=== PATIENT | female | born 1975 | race Caucasian/White ===

== ENCOUNTER → 2017-04-07 | Outpatient (CLI) | payer OTHER ==
[2017-04-07 07:11] LABS: HEMATOCRIT 40.9 % (34.6-47.8); HEMOGLOBIN 13.6 g/dL (11.7-16.4); WHITE BLOOD COUNT 7.6 x10^3/uL (3.4-10)
[2017-04-07 07:22] LABS: BLOOD UREA NITROGEN 10 mg/dL (7-18)
[2017-04-07 07:47] LABS: ASPARTATE AMINO TRANSFERASE 16 U/L (15-37)
== END | disposition home or self-care (01) ==
LOC: LAB 06:54
PROVIDERS: ATTEND Nurse Practitioner
DX: Z00.01 Encounter for general adult medical examination with abnormal findings (principal); I10 Essential (primary) hypertension
CPT/HCPCS: 36415; 80053; 80061; 82306; 82607; 82746; 84443; 85025

== ENCOUNTER → 2018-04-25 | Outpatient (CLI) | payer OTHER ==
[2018-04-25 07:34] LABS: BASOPHILS # (AUTO) 0.04 x10^3/uL (0-0.1); BASOPHILS % (AUTO) 1 % (0-1); EOSINOPHILS # (AUTO) 0.09 x10^3/uL (0-0.4); EOSINOPHILS % (AUTO) 1 % (1-7); LYMPHOCYTES # (AUTO) 2.12 x10^3/uL (1-3.4); LYMPHOCYTES % (AUTO) 26 % (22-44); MD NO; MEAN CORPUSCULAR HEMOGLOBIN 26.9 pg (27.0-34.8); MEAN CORPUSCULAR HGB CONC 32.3 g/dL (32.4-35.8); MEAN CORPUSCULAR VOLUME 83.3 fL (80-100); MEAN PLATELET VOLUME 8.8 fL (7.4-10.4); MONOCYTES # (AUTO) 0.45 x10^3/uL (0.2-0.8); MONOCYTES % (AUTO) 6 % (2-9); NEUTROPHILS # (AUTO) 5.48 x10^3/uL (1.8-6.8); NEUTROPHILS % (AUTO) 67 % (42-75); PLATELET COUNT 254 x10^3/uL (130-400); RED BLOOD COUNT 4.23 x10^6/uL (3.82-5.3)
[2018-04-25 07:38] LABS: ALANINE AMINOTRANSFERASE 21 U/L (12-78); ALBUMIN 3.2 g/dL (3.4-5.0); ANION GAP 9 mmol/L (5-15); CALCIUM 8.2 mg/dL (8.5-10.1); CHLORIDE 108 mmol/L (98-107); CHOLESTEROL, TOTAL 161 mg/dL (140-239); CREATININE 0.72 mg/dL (0.55-1.02); TRIGLYCERIDES 236 mg/dL (50-200); VLDL CHOLESTEROL 47 mg/dL (0-25)
[2018-04-25 07:49] LABS: ALKALINE PHOSPHATASE 56 U/L (45-117); BILIRUBIN,TOTAL 0.4 mg/dL (0.2-1.0); HDL CHOL % 34 % (28-40); HDL CHOLESTEROL (DIRECT) 54 mg/dL (40-60); LDL CHOLESTEROL,CALCULATED 60 mg/dL (54-169); LDL/HDL RATIO 1.1 (0.5-3.0)
== END | disposition home or self-care (01) ==
LOC: LAB 07:10
PROVIDERS: ATTEND Nurse Practitioner
DX: I10 Essential (primary) hypertension (principal)
CPT/HCPCS: 36415; 80053; 80061; 84443; 85025

== ENCOUNTER → 2018-09-05 | Outpatient (CLI) | payer OTHER | END | disposition home or self-care (01) | LOC: CFH 08:23 | PROVIDERS: ATTEND Family Medicine | DX: Z12.31 Encounter for screening mammogram for malignant neoplasm of breast (principal) | CPT/HCPCS: 77063; 77067 ==

== ENCOUNTER → 2018-11-29 | Outpatient (CLI) | payer OTHER ==
[2018-11-29 07:16] LABS: BASOPHILS # (AUTO) 0.04 x10^3/uL (0-0.1); BASOPHILS % (AUTO) 1 % (0-1); EOSINOPHILS % (AUTO) 2 % (1-7); LYMPHOCYTES % (AUTO) 31 % (22-44); MD NO; MEAN CORPUSCULAR HEMOGLOBIN 31.7 pg (27.0-34.8); MEAN CORPUSCULAR HGB CONC 33.1 g/dL (32.4-35.8); MEAN CORPUSCULAR VOLUME 95.6 fL (80-100); MEAN PLATELET VOLUME 8.7 fL (7.4-10.4); MONOCYTES # (AUTO) 0.43 x10^3/uL (0.2-0.8); MONOCYTES % (AUTO) 7 % (2-9); NEUTROPHILS # (AUTO) 3.38 x10^3/uL (1.8-6.8); NEUTROPHILS % (AUTO) 59 % (42-75); PLATELET COUNT 220 x10^3/uL (130-400); RED BLOOD COUNT 4.48 x10^6/uL (3.82-5.3); RED CELL DISTRIBUTION WIDTH 13.3 % (9.6-15.2)
[2018-11-29 07:21] LABS: ALANINE AMINOTRANSFERASE 34 U/L (12-78); ALBUMIN 3.6 g/dL (3.4-5.0); ANION GAP 9 mmol/L (5-15); CHLORIDE 108 mmol/L (98-107); CREATININE 0.77 mg/dL (0.55-1.02)
[2018-11-29 07:30] LABS: % IRON SATURATION 14 % (20-55); ALKALINE PHOSPHATASE 51 U/L (45-117); BILIRUBIN,TOTAL 0.3 mg/dL (0.2-1.0); CHOL/HDL RATIO 2.6; CHOLESTEROL, TOTAL 168 mg/dL (140-239); HDL CHOL % 38 % (28-40); HDL CHOLESTEROL (DIRECT) 64 mg/dL (40-60); IRON LEVEL 49 mcg/dL (50-170); LDL CHOLESTEROL,CALCULATED 76 mg/dL (54-169); LDL/HDL RATIO 1.2 (0.5-3.0); TOTAL IRON BINDING CAPACITY 354 mcg/dL (250-450); TOTAL PROTEIN 6.8 g/dL (6.4-8.2); TRIGLYCERIDES 138 mg/dL (50-200); VLDL CHOLESTEROL 28 mg/dL (0-25)
[2018-11-29 08:33] LABS: HEMOGLOBIN A1C 5.1 % (4.2-6.3)
== END | disposition home or self-care (01) ==
LOC: LAB 06:49
PROVIDERS: ATTEND Family Medicine
DX: E78.2 Mixed hyperlipidemia (principal); I10 Essential (primary) hypertension; D64.9 Anemia, unspecified; E55.9 Vitamin D deficiency, unspecified; N92.0 Excessive and frequent menstruation with regular cycle; R73.01 Impaired fasting glucose; Z82.49 Family history of ischemic heart disease and other diseases of the circulatory system
CPT/HCPCS: 36415; 80053; 80061; 82306; 82728; 83036; 83540; 83550; 84443; 85025

== ENCOUNTER 2019-09-13 15:10 | Outpatient (CLI) | payer OTHER | END 2019-09-13 23:59 | disposition home or self-care (01) | LOC: LAB 15:10 | PROVIDERS: ATTEND Family Medicine | DX: N92.1 Excessive and frequent menstruation with irregular cycle (principal) | CPT/HCPCS: 36415; 84703 ==

== ENCOUNTER 2019-09-20 07:55 | Outpatient (CLI) | payer OTHER | END 2019-09-20 23:59 | disposition home or self-care (01) | LOC: LAB 07:55 | PROVIDERS: ATTEND Family Medicine | DX: Z02.9 Encounter for administrative examinations, unspecified (principal) ==

== ENCOUNTER 2019-10-18 07:04 | Outpatient (CLI) | payer OTHER ==
[2019-10-18 07:18] LABS: BASOPHILS # (AUTO) 0.03 x10^3/uL (0-0.1); BASOPHILS % (AUTO) 1 % (0-1); EOSINOPHILS # (AUTO) 0.14 x10^3/uL (0-0.4); EOSINOPHILS % (AUTO) 2 % (1-7); LYMPHOCYTES # (AUTO) 2.01 x10^3/uL (1-3.4); LYMPHOCYTES % (AUTO) 32 % (22-44); MD NO; MEAN CORPUSCULAR HEMOGLOBIN 31.9 pg (27.0-34.8); MEAN CORPUSCULAR HGB CONC 33.4 g/dL (32.4-35.8); MEAN CORPUSCULAR VOLUME 95.4 fL (80-100); MEAN PLATELET VOLUME 8.6 fL (7.4-10.4); MONOCYTES # (AUTO) 0.33 x10^3/uL (0.2-0.8); MONOCYTES % (AUTO) 5 % (2-9); NEUTROPHILS # (AUTO) 3.76 x10^3/uL (1.8-6.8); NEUTROPHILS % (AUTO) 60 % (42-75); PLATELET COUNT 213 x10^3/uL (130-400); RED BLOOD COUNT 4.47 x10^6/uL (3.82-5.3); RED CELL DISTRIBUTION WIDTH 13.2 % (9.6-15.2)
[2019-10-18 07:28] LABS: ALANINE AMINOTRANSFERASE 38 U/L (12-78); ALBUMIN 3.6 g/dL (3.4-5.0); ANION GAP 5 mmol/L (5-15); CALCIUM 8.7 mg/dL (8.5-10.1); CHLORIDE 107 mmol/L (98-107)
[2019-10-18 07:37] LABS: % IRON SATURATION 31 % (20-55); ALKALINE PHOSPHATASE 47 U/L (45-117); BILIRUBIN,TOTAL 0.6 mg/dL (0.2-1.0); CHOL/HDL RATIO 2.7; CHOLESTEROL, TOTAL 183 mg/dL (140-239); CREATININE 0.71 mg/dL (0.55-1.02); HDL CHOL % 38 % (28-40); HDL CHOLESTEROL (DIRECT) 69 mg/dL (40-60); IRON LEVEL 107 mcg/dL (50-170); LDL CHOLESTEROL,CALCULATED 86 mg/dL (54-169); LDL/HDL RATIO 1.2 (0.5-3.0); TOTAL IRON BINDING CAPACITY 347 mcg/dL (250-450); TRIGLYCERIDES 142 mg/dL (50-200); VLDL CHOLESTEROL 28 mg/dL (0-25)
== END 2019-10-18 23:59 | disposition home or self-care (01) ==
LOC: LAB 07:04
PROVIDERS: ATTEND Family Medicine
DX: E78.49 Other hyperlipidemia (principal); D64.9 Anemia, unspecified; E55.9 Vitamin D deficiency, unspecified; I10 Essential (primary) hypertension; N92.0 Excessive and frequent menstruation with regular cycle; R73.01 Impaired fasting glucose; Z82.49 Family history of ischemic heart disease and other diseases of the circulatory system
CPT/HCPCS: 36415; 80053; 80061; 82306; 82728; 83036; 83540; 83550; 84443; 85025

== ENCOUNTER → 2020-10-22 | Outpatient (CLI) | payer OTHER | END | disposition home or self-care (01) | LOC: CFH 07:05 | PROVIDERS: ATTEND Internal Medicine | DX: Z12.31 Encounter for screening mammogram for malignant neoplasm of breast (principal) | CPT/HCPCS: 77063; 77067 ==